=== PATIENT | male | born 1970 | race African-American/Black ===

== ENCOUNTER 2016-08-31 02:12 | Emergency (ER) | payer SELFPAY ==
[~2016-08-31] VITALS: Ht 188 cm; Wt 98.4 kg
[2016-08-31] MEDS ORDERED: TETRACAINE HCL 0.5% OPTH(EYE) SOLN 4ML RIGHTEYE ONE (03:00)
[2016-08-31] MEDS ORDERED: FLUORESCEIN SOD 1 MG TEST STRIP RIGHTEYE ONE (03:00)
[2016-08-31 03:26] VITALS: BP 134/89
== END 2016-08-31 03:27 | disposition home or self-care (01) ==
LOC: ER 02:14
DX: T15.92XA Foreign body on external eye, part unspecified, left eye, initial encounter (principal); T15.91XA Foreign body on external eye, part unspecified, right eye, initial encounter; E11.9 Type 2 diabetes mellitus without complications; I10 Essential (primary) hypertension; E07.9 Disorder of thyroid, unspecified; X58.XXXA Exposure to other specified factors, initial encounter; Y93.89 Activity, other specified; Y99.8 Other external cause status; Y92.89 Other specified places as the place of occurrence of the external cause

== ENCOUNTER 2016-11-23 08:42 | Emergency (ER) | payer OTHER ==
[~2016-11-23] VITALS: Ht 188 cm; Wt 94.8 kg
[2016-11-23 08:55] VITALS: BP 140/90
== END 2016-11-23 10:05 | disposition home or self-care (01) ==
LOC: ER 08:47
DX: S91.131A Puncture wound without foreign body of right great toe without damage to nail, initial encounter (principal); L84 Corns and callosities; E11.9 Type 2 diabetes mellitus without complications; I10 Essential (primary) hypertension; E07.89 Other specified disorders of thyroid; W22.8XXA Striking against or struck by other objects, initial encounter; Y93.89 Activity, other specified; Y99.8 Other external cause status; Y92.89 Other specified places as the place of occurrence of the external cause

== ENCOUNTER 2017-01-19 07:30 | Emergency (ER) | payer OTHER ==
[~2017-01-19] VITALS: Ht 185.4 cm; Wt 98.4 kg
[2017-01-19 07:40] VITALS: BP 140/94
== END 2017-01-19 08:25 | disposition left against medical advice (07) ==
LOC: ER 07:30
DX: S60.512A Abrasion of left hand, initial encounter (principal); Z53.21 Procedure and treatment not carried out due to patient leaving prior to being seen by health care provider; X58.XXXA Exposure to other specified factors, initial encounter; Y93.89 Activity, other specified; Y99.8 Other external cause status; Y92.89 Other specified places as the place of occurrence of the external cause

== ENCOUNTER 2017-02-28 08:30 | Emergency (ER) | payer OTHER ==
[~2017-02-28] VITALS: Ht 185.4 cm; Wt 100.2 kg
[2017-02-28 09:06] VITALS: BP 111/74
[2017-02-28] MEDS ORDERED: KETOROLAC TROMETH 60MG/2ML VIAL IM ONE (09:30)
[2017-02-28] MEDS ORDERED: diphenhdrAMINE HCL 50 MG/1 ML VL IM ONE (09:30)
== END 2017-02-28 09:57 | disposition home or self-care (01) ==
LOC: ER 08:30
DX: M54.41 Lumbago with sciatica, right side (principal); E11.9 Type 2 diabetes mellitus without complications; I10 Essential (primary) hypertension
CPT/HCPCS: 96372; 99284; J1200; J1885